=== PATIENT | male | born 1960 | race Hispanic/Latino ===

== ENCOUNTER → 2023-11-25 | Emergency (ER) | payer OTHER ==
[~2023-11-25] MED LIST: DIPHENHYDRAMINE 50 MG/ML VIAL ONE; METOCLOPRAMIDE 10 MG/2mL INJ ONE; NA CHLORIDE 0.9% 1,000 ML ONE
--- OUTSIDE RECORDS SUMMARY | 2023-11-25 14:57 | XMS REPORT | Continuity of Care Document ---
Author Name Unknown Address [address] [facility] [address] th[address] Address [address] [facility]. 1 [address] [place] [address] Care Team Providers Care Health Aide Name Role Phone BERNA GRIMALDO Attending Clinician Unavailable Payers Payer Name Policy Type Policy Number Effective Date Expirati on Date Source [facility] [employer] [id number] 00:00:00 Encounters Start Date/Time End Date/Time Encounter Type Admission Type Attending Clinicians Care Facility Care Department Encounter ID Source 2023-07-01 12:09:57 Outpatient [facility] [id number] [facility] 2023-06-03 13:35:15 Outpatient [facility] [id number] [facility] 2023-06-01 15:28:09 Outpatient [facility] [id number] [facility] 2023-05-28 14:54:49 Outpatient [facility] [id number] [facility] 2023-06-23 14:40:00 2023-06-23 14:40:00 Outpatient BERNA GRIMALDO [facility] [id number] [facility] 2023-06-03 15:00:00 2023-06-03 15:00:00 Outpatient [facility] [id number] [facility]
[2023-11-25 15:34] LABS: Absolute Lymphocytes (CBC) 1.3 K/uL (0.7-4.9); Hematocrit 26.9 % (39.6-49.0); Lymphocytes % 16.9 % (15.3-44.8); MCV 78.1 fL (80-100); MPV 8.2 fL (7.6-11.3); Platelets 343 thou/uL (152-406); RBC Red Blood Cell Count 3.45 M/uL (4.33-5.43)
--- NOTE | 2023-11-25 15:40 | RAD REPORT ---
EXAM DESCRIPTION: RAD - Chest Single View - 11/25/2023 3:29 pm CLINICAL HISTORY: eval for pna Chest pain. COMPARISON: Chest Single View dated 06/17/2016; Chest Single View dated 06/16/2016; CHEST PA AND LAT 2 VIEW dated 06/19/2015; CHEST PA AND LAT 2 VIEW dated 01/30/2011 FINDINGS: Portable technique limits examination quality. The lungs are grossly clear. The heart is mildly enlarged in size. No displaced fractures. IMPRESSION: No acute intrathoracic process suspected.
[2023-11-25 15:55] LABS: Bilirubin Total 0.5 mg/dL (0.2-1.0); Potassium 3.6 mEq/L (3.5-5.1); Protein, Total 8.7 g/dL (6.4-8.2)
--- NOTE | 2023-11-25 16:11 | RAD REPORT ---
EXAM DESCRIPTION: MRI - Brain Wo Cont - 11/25/2023 3:59 pm CLINICAL HISTORY: vertigo, nystagmus Headache, drowsiness COMPARISON: Head Brain Wo Cont dated 06/16/2016 TECHNIQUE: Multi-sequence, multiplanar MR imaging of the brain was performed without contrast. FINDINGS: No intracranial hemorrhage, hydrocephalus or extra-axial fluid collections.Patchy areas of T2/FLAIR hyperintensity seen in the periventricular region, nonspecific but likely related to chroni c microvascular ischemic changes. No edema or shift of midline structures. No findings to suspect bra in mass. DWI is negative for acute CVA. Midline structures are normally formed. Mastoid air cells and paranasal sinuses are clear. IMPRESSION: Negative for acute CVA or other acute intracranial finding.
--- NOTE | 2023-11-25 16:18 | RAD REPORT ---
EXAM DESCRIPTION: CT - Head Brain Wo Cont - 11/25/2023 4:13 pm CLINICAL HISTORY: DIZZINESS Headache, drowsiness COMPARISON: Head angio dated 11/25/2023; Head Brain Wo Cont dated 06/16/2016 TECHNIQUE: All CT scans are performed using dose optimization technique as appropriate and may inclu de automated exposure control or mA/KV adjustment according to patient size. FINDINGS: No intracranial hemorrhage, hydrocephalus or extra-axial fluid collection.Mild low-density areas in the periventricular region likely chronic microvascular ischemia.No areas of brain edema or evidence of midline shift. Mild vertebral atherosclerosis. The paranasal sinuses and mastoids are clear. The calvarium is intact. IMPRESSION: No acute intracranial abnormality.
--- NOTE | 2023-11-25 16:23 | RAD REPORT ---
EXAM DESCRIPTION: CT - Head angio - 11/25/2023 4:13 pm CLINICAL HISTORY: DIZZINESS Headache, drowsiness COMPARISON: Head Brain Wo Cont dated 06/16/2016 TECHNIQUE: CT angiography of the head was performed with MIPs. All CT scans are performed using dose optimization technique as appropriate and may include automated exposure control or mA/KV adjustment according to patient size. FINDINGS: No evidence of large vessel occlusion. No evidence of aneurysm is detected. No flow-limiti ng stenosis or vascular malformation identified. Antegrade flow is seen in the vertebral arteries. Multiple focal narrowings are seen the left vertebr al artery compatible with stenoses. The right vertebral artery is dominant. The visualized dural venous sinuses are patent. IMPRESSION: No significant flow abnormality is detected.
--- NOTE | 2023-11-25 16:27 | RAD REPORT ---
EXAM DESCRIPTION: CT - Neck Angio - 11/25/2023 4:13 pm CLINICAL HISTORY: dizzness Headache, drowsiness COMPARISON: No comparisons TECHNIQUE: CT angiography of the neck vessels was performed with MIPs. All CT scans are performed using dose optimization technique as appropriate and may include automated exposure control or mA/KV adjustment according to patient size. FINDINGS: A left aortic arch is identified with normal three vessel configuration of the great vesse ls. No significant flow abnormality is seen of the common carotid bilaterally. Moderately severe hard plaquing is present involving both carotid bulbs, more severe on the left. 90% stenosis of the left carotid bulb suspected based on NASCET criteria. Moderate to severe stenosis of 70 % suspected at the right carotid bulb. The right vertebral artery is dominant. The left vertebral artery is diminutive. IMPRESSION: Significant hard plaquing is seen in both carotid bulbs, more severe on the left. 90% stenosis suspected left carotid bulb based on NASCET criteria. 70% stenosis right carotid bulb also noted. NASCET criteria used. Mild 0-49% stenosis Moderate 50-69% stenosis Severe 70-99% stenosis
--- NOTE | 2023-11-25 16:39 | EDPHYS ---
Physician Documentation [facility] Name: Roel Hollingsworth Age: 62 yrs Sex: Male : 1960 Arrival Date: 11/25/2023 Time: 14:54 Bed 18 Private MD: ED Physician Amol Crain HPI: 11/25 15:19 This 62 yrs old Male presents to ER via Wheelchair with complaints of ec2 Nausea/Vomiting, Dizziness. 15:19 Patient arrives today due to concern for vertigo. Patient states that his symptoms ec2 started just over 4.5 hours prior to arrival. States that he feels dizzy like the room spinning around him. Patient reports some associated nausea and vomiting. Patient reports a history of previous TAVR, previous cardiac stents. Denies any chest pain or difficulty breathing. Patient reports that he otherwise has no recent illnesses, no cough and cold symptoms, no fevers or chills. Patient reports no urinary complaints. Historical: - Allergies: 15:08 No Known Allergies; iw - PMHx: 15:08 Hypertension; pre-diabetic; Hypercholesterolemia; iw - PSHx: 15:08 TAVR; cardiac stent; iw - Immunization history:: Adult Immunizations unknown. - Social history:: Smoking status: unknown. ROS: 15:19 Constitutional: as per hpi ec2 Exam: 15:19 Constitutional: GEN: NAD Head: atraumatic Eyes: EOMI Ears: External ears are ec2 normal. CV: regular rate LUNGS: no respiratory distress ABD: non-distended SKIN: no evidence of rashes MSK: no evidence of trauma NEURO: moves all extremities equally, cranial nerves II through XII intact, strength intact in all 4 extremities, left beating nystagmus noted. Vital Signs: 15:06 BP 142 / 62; Pulse 67; Resp 16; Pulse Ox 97% on R/A; iw 16:29 BP 118 / 48; Pulse 68; Resp 16 S; Pulse Ox 93% on R/A; kc6 MDM: 15:06 Patient medically screened. ec2 15:16 Data reviewed: vital signs. ED course: EKG independently reviewed and interpreted by ec2 nm, shows normal sinus rhythm, rate of 69, no acute ST segment elevations, intervals show prolonged QTc.. 15:19 ED course: Patient arrives today for evaluation of vertigo. Examination remarkable for ec2 left beating nystagmus noted on cranial nerve examination. Will obtain lab work, CT imaging, MRI. Currently considering process such as stroke, vascular pathology, electrolyte disturbances, anemia, UTI. Additionally considering ACS.. 16:15 ED course: CBC shows slight anemia. Metabolic profile with some renal dysfunction noted ec2 with a creatinine of 1.41. Chest x-ray shows no acute intrathoracic process. MRI brain shows no stroke. Troponin within normal ranges. . 16:33 ED course: CT imaging shows no acute intracranial process, angio shows significant ec2 stenosis of the left carotid bulb with approximately 90% stenosis. Ultimately patient with no evidence of ischemia as evidenced on the multiple intracranial images. On further discussion with the patient, patient states that he has previous diagnosis of vertigo and the symptoms are similar however were a little more severe than typical which will prompted evaluation today. I will discharge patient home with prescription for meclizine, suspect vertigo causing patient's symptoms. Additionally instructed him to follow-up with his primary care doctor to discuss further outpatient management regarding his significant stenosis and discussed outpatient additional testing for the carotid disease as well as consideration for endarterectomy. Will discharge home. Return precautions given.. 11/25 15:19 Order name: CBC with Diff; Complete Time: 16:14 ec2 11/25 15:19 Order name: CMP; Complete Time: 16:14 ec2 11/25 15:19 Order name: Troponin HS; Complete Time: 16:14 ec2 11/25 15:19 Order name: CXR XRAY; Complete Time: 16:14 ec2 11/25 15:19 Order name: CT Head Brain wo Cont; Complete Time: 16:31 ec2 11/25 15:19 Order name: CT Head Angio; Complete Time: 16:31 ec2 11/25 15:19 Order name: CT Neck Angio; Complete Time: 16:31 ec2 11/25 15:19 Order name: MRI - Brain Wo Cont; Complete Time: 16:14 ec2 11/25 15:19 Order name: EKG; Complete Time: 15:20 ec2 11/25 15:19 Order name: EKG - Nurse/Tech; Complete Time: 15:25 ec2 Administered Medications: 15:23 Drug: metoCLOPramide IVP 10 mg IVP once; over 1 to 2 minutes Route: IVP; Site: right iw antecubital; 16:31 Follow up: Response: No adverse reaction; Nausea is decreased; Vomiting decreased kc6 15:23 Drug: diphenhydrAMINE IVP 50 mg IVP once Route: IVP; Site: right antecubital; iw 16:31 Follow up: Response: No adverse reaction; RASS: Drowsy (-1) kc6 15:29 Drug: NS 0.9% IV 1000 ml IV at 1 bolus Per protocol; 1000 mL bolus Route: IV; Rate: 1 kc6 bolus; Site: right antecubital; 16:32 Follow up: Response: No adverse reaction; IV Status: Completed infusion; IV Intake: kc6 1000ml Disposition Summary: 11/25/23 16:38 Discharge Ordered Condition: Stable ec2 Diagnosis - Other peripheral vertigo ec2 Followup: ec2 - With: Private Physician - When: - Reason: Recheck today's complaints, Re-evaluation by your physician Discharge Instructions: - Discharge Summary Sheet ec2 - Vertigo, Bawv-no-Xvag ec2 Forms: - Medication Reconciliation Form ec2 - Thank You Letter ec2 - Antibiotic Education ec2 - Prescription Opioid Use ec2 - Patient Portal Instructions ec2 - Leadership Thank You Letter ec2 Prescriptions: - Meclizine 25 mg Oral Tablet - take 1 tablet ORAL route every 8 hours As needed; 30 tablet; Refills: 0, ec2 Product Selection Permitted Signatures: Dispatcher [employer] Azalia Davis RN RN iw Campbell, Kaitlyn, RN RN kc6 Amol Crain MD MD ec2 Corrections: (The following items were deleted from the chart) 16:38 16:33 ED course: CT imaging shows no acute intracranial process, angio shows ec2 significant stenosis of the left carotid bulb with approximately 90% stenosis. Ultimately patient with no evidence of ischemia as evidenced on the multiple intracranial images. I will discharge patient home with prescription for meclizine, suspect vertigo causing patient's symptoms. Will discharge home. Return precautions given.. ec2
--- NOTE | 2023-11-25 16:39 | ER ---
Nurse's Notes [facility] Name: Roel Hollingsworth Age: 62 yrs Sex: Male : 1960 Arrival Date: 11/25/2023 Time: 14:54 Bed 18 Private MD: Diagnosis: Other peripheral vertigo Presentation: 11/25 15:06 Chief complaint: Patient states: has been dizzy all day at work, became nauseous after iw lunch , started vomiting just [employer] , pt denies chest pain, denies abd pain. Coronavirus screen: Client presents with at least one sign or symptom that may indicate coronavirus-19. Ebola Screen: Patient negative for fever greater than or equal to 101.5 degrees Fahrenheit, and additional compatible Ebola Virus Disease symptoms Patient denies exposure to infectious person. Patient denies travel to an Ebola-affected area in the 21 days before illness onset. No symptoms or risks identified at this time. 15:06 Method Of Arrival: Wheelchair iw 15:06 Acuity: SHREYA 2 iw 15:16 Initial Sepsis Screen: Does the patient meet any 2 criteria? No. Patient's initial kc6 sepsis screen is negative. Does the patient have a suspected source of infection? No. Patient's initial sepsis screen is negative. Risk Assessment: Do you want to hurt yourself or someone else? Patient reports no desire to harm self or others. Onset of symptoms was November 25, 2023. Historical: - Allergies: 15:08 No Known Allergies; iw - PMHx: 15:08 Hypertension; pre-diabetic; Hypercholesterolemia; iw - PSHx: 15:08 TAVR; cardiac stent; iw - Immunization history:: Adult Immunizations unknown. - Social history:: Smoking status: unknown. Screenin:15 [facility] ED Fall Risk Assessment (Adult) History of falling in the last 3 months, kc6 including since admission No falls in past 3 months (0 pts) Confusion or Disorientation No (0 pts) Intoxicated or Sedated No (0 pts) Impaired Gait No (0 pts) Mobility Assist Device Used No (0 pt) Altered Elimination No (0 pt) Score/Fall Risk Level 0 - 2 = Low Risk. Abuse screen: Denies threats or abuse. Denies injuries from another. Nutritional screening: No deficits noted. Tuberculosis screening: No symptoms or risk factors identified. Assessment: 15:15 General: Appears distressed, uncomfortable, well groomed, well developed, Behavior is kc6 cooperative, appropriate for age. Pain: Denies pain. Neuro: Level of Consciousness is awake, alert, obeys commands, Oriented to person, place, time, situation, Appropriate for age Reports dizziness. Cardiovascular: Capillary refill < 3 seconds. Respiratory: Airway is patent Trachea midline Respiratory effort is even, unlabored, Respiratory pattern is regular, symmetrical. GI: Abdomen is round obese, Pt is actively vomiting bile, Bowel sounds present X 4 quads. Abd is soft and non tender X 4 quads. Reports nausea, vomiting, Patient currently denies abdominal pain, diarrhea. : No signs and/or symptoms were reported regarding the genitourinary system. EENT: No signs and/or symptoms were reported regarding the EENT system. Derm: Skin is intact, is healthy with good turgor, Skin is diaphoretic, Skin is pale, Skin temperature is warm. Musculoskeletal: No signs and/or symptoms reported regarding the musculoskeletal system. Circulation, motion, and sensation intact. Capillary refill < 3 seconds, Range of motion: intact in all extremities. 15:33 Reassessment: pt to MRi via stretcher. kc6 16:29 Reassessment: Patient appears in no apparent distress at this time. No changes from kc6 previously documented assessment. Patient and/or family updated on plan of care and expected duration. Pain level reassessed. Patient is alert, oriented x 3, equal unlabored respirations, skin warm/dry/pink. Vital Signs: 15:06 BP 142 / 62; Pulse 67; Resp 16; Pulse Ox 97% on R/A; iw 16:29 BP 118 / 48; Pulse 68; Resp 16 S; Pulse Ox 93% on R/A; kc6 ED Course: 14:57 Patient arrived in ED. kc6 14:58 Amol Crain MD is Attending Physician. ec2 15:08 Triage completed. iw 15:09 Arm band placed on. iw 15:09 Inserted saline lock: 18 gauge in right antecubital area, using aseptic technique. iw Blood collected. 15:15 Tatiana Cornelius RN is Primary Nurse. kc6 15:15 Patient has correct armband on for positive identification. Placed in gown. Bed in low kc6 position. Call light in reach. Side rails up X2. Client placed on continuous cardiac and pulse oximetry monitoring. NIBP monitoring applied. monitoring engineer on. 15:15 Patient maintains SpO2 saturation greater than 95% on room air. kc6 15:31 CXR XRAY In Process Unspecified. EDMS 15:45 MRI - Brain Wo Cont In Process Unspecified. EDMS 16:15 CT Head Brain wo Cont In Process Unspecified. EDMS 16:15 CT Head Angio In Process Unspecified. EDMS 16:15 CT Neck Angio In Process Unspecified. EDMS 17:16 No provider procedures requiring assistance completed. IV discontinued, intact, kc6 bleeding controlled, No redness/swelling at site. Pressure dressing applied. Administered Medications: 15:23 Drug: metoCLOPramide IVP 10 mg IVP once; over 1 to 2 minutes Route: IVP; Site: right iw antecubital; 16:31 Follow up: Response: No adverse reaction; Nausea is decreased; Vomiting decreased kc6 15:23 Drug: diphenhydrAMINE IVP 50 mg IVP once Route: IVP; Site: right antecubital; iw 16:31 Follow up: Response: No adverse reaction; RASS: Drowsy (-1) kc6 15:29 Drug: NS 0.9% IV 1000 ml IV at 1 bolus Per protocol; 1000 mL bolus Route: IV; Rate: 1 kc6 bolus; Site: right antecubital; 16:32 Follow up: Response: No adverse reaction; IV Status: Completed infusion; IV Intake: kc6 1000ml Medication: 17:16 VIS not applicable for this client. kc6 Intake: 16:32 IV: 1000ml; Total: 1000ml. kc6 Outcome: 16:38 Discharge ordered by . ec2 17:16 Discharged to home ambulatory, kc6 17:16 Condition: improved 17:16 Discharge instructions given to patient, Instructed on discharge instructions, follow up and referral plans. medication usage, Demonstrated understanding of instructions, follow-up care, medications, Prescriptions given X 1, 17:16 Patient left the ED. kc6 Signatures: Dispatcher [employer] Azalia Davis, NEO LARSON iw Tatiana Cornelius RN RN kc6 Corral, Edwin, MD MD ec2
[2023-11-25 18:11] VITALS: BP 118/48; O2SAT 93
--- NOTE | 2023-11-26 13:22 | EKG ---
Test Date: 2023-11-25 Test Time: 15:02:06 Retail Pharmacist: JESSICA MEASUREMENT RESULTS: Intervals: Rate: 69 ND: 172 QRSD: 86 QT: 464 QTc: 497 [place]: P: 52 ND: 172 QRS: 50 T: 47 INTERPRETIVE STATEMENTS: Normal sinus rhythm Prolonged QT Abnormal ECG Compared to ECG 06/17/2016 07:19:24 Left ventricular hypertrophy no longer present Electronically Signed On 11-26-23 13:19:26 [employer] by Amadeo Narayanan
== END ==
LOC: ER 14:54
DX: H81.399 Other peripheral vertigo, unspecified ear (principal); R11.2 Nausea with vomiting, unspecified; I10 Essential (primary) hypertension; Z95.818 Presence of other cardiac implants and grafts
CPT/HCPCS: 96361; 93005; 85025; 36415; 84484; 80053; 70450; 70496; 70498; 71045; 70551; 96375; 96374; 99285; Q9967; J2765; J1200; J7030